=== PATIENT | female | born 1980 | race Caucasian/White ===

== ENCOUNTER 2017-03-05 18:22 | Emergency (ER) | payer BC, MEDICAID ==
[2017-03-05 19:14] LABS: HEMATOCRIT 28.1 % (35.0-45.0); HEMOGLOBIN 8.4 gm/dL (11.7-15.5); MEAN CORPUSCULAR HEMOGLOBIN 16.2 pg (27.0-31.0); PLATELET COUNT 346 Th/cmm (150-400); RED BLOOD COUNT 5.22 Mil/cmm (3.80-5.10); RED CELL DISTRIBUTION WIDTH 18.2 % (11.5-20.0); WHITE BLOOD COUNT 6.4 Th/cmm (4.8-10.8)
[2017-03-05 19:17] LABS: MEAN CELL VOLUME 53.8 fl (81-100)
--- NOTE | 2017-03-05 19:17 | ED Physician Chart ---
Chief Complaint/HPI - Patient Information Date Seen:: 03/05/17 Time Seen:: 18:45 Chief Complaint:: cough History of Present Illness:: THIS IS A 36 YO FEMALE WITH THE SUDDEN ONSET OF A COUGH TWO DAYS AGO WITH CHEST CONGESTION. SHE DENIES FEVER,SPUTUM PRODUCTION OR EXPOSURE TO SOMEONE AT THAT IS SICK. SHE STATES THAT SHE HAD ASTHMA A CHILD BUT NO PROBLEMS RECENTLY. SHE HAS A HISTORY DIABETES BUT NO HISTORY OF HYPERTENSION. Vitals:: Vital Signs - 8 hr 03/05/17 18:44 Temp 98.4 F HR 90 RR 81 BP 127/81 O2 Sat % 100 Historian:: Patient Review:: Nurse's Note Reviewed Review of Systems - Review of Systems General/Constitutional: No fever, No chills, No weight loss, No weakness, No diaphoresis, No edema, No loss of appetite Skin: No skin lesions, No rash, No bruising Head: No headache, No light-headedness Eyes: No loss of vision, No pain, No diplopia ENT: No earache, No nasal drainage, No sore throat, No tinnitus Neck: No neck pain, No swelling, No thyromegaly, No stiffness, No mass noted Cardio Vascular: No chest pain, No palpitations, No PND, No orthopnea, No edema Pulmonary: No SOB, No sputum, Wheezing, Other (CHEST CONGESTION) GI: No nausea, No vomiting, No diarrhea, No pain, No melena, No hematochezia, No constipation, No hematemesis G/U: No dysuria, No frequency, No hematuria Musculoskeletal: No bone or joint pain, No back pain, No muscle pain Endocrine: No polyuria, No polydipsia Psychiatric: No prior psych history, No depression, No anxiety, No suicidal ideation Hematopoietic: No bruising, No lymphadenopathy Allergic/Immuno: No urticaria, No angioedema Neurological: No syncope, No focal symptoms, No weakness, No paresthesia, No headache, No seizure, No dizziness, No confusion, No vertigo Past Medical History - Past Medical History Obtainable: No Past Medical History: DM, Asthma/COPD Family History: None Social History: Non Smoker, No Alcohol, No Drug Use Surgical History: Psychiatricy History: None Medication: Reviewed Family Medical History - Family Member Mother History Unknown: Yes Physical Exam - Physical Examination General/Constitutional: Awake, Well-developed, well-nourished, Alert, No distress, GCS 15, Non-toxic appearing, Ambulatory Head: Atraumatic Eyes: Lids, conjuctiva normal, PERRL, EOMI Skin: Nl inspection, No rash, No skin lesions, No ecchymosis, Well hydrated, No lymphadenopathy ENMT: External ears, nose nl, Nasal exam nl, Lips, teeth, gums nl Neck: Nontender, Full ROM w/o pain, No JVD, No nuchal rigidity, No bruit, No mass, No stridor Respiratory: Nl effort/Exclusion Other Respiratory comments:: BILATERAL RHONCHI HEARD Cardio Vascular: RRR, No murmur, gallop, rubs, NL S1 S2 GI: No tenderness/rebounding/guarding, No organomegaly, No hernia, Normal BS's, Nondistended, No mass/bruits, No McBurney tenderness : No CVA tenderness Extremities: No tenderness or effusion, Full ROM, normal strength in all extremities, No edema, Normal digits & nails Neuro/Psych: Alert/oriented, DTR's symmetric, Normal sensory exam, Normal motor strength, Judgement/insight normal, Mood normal, Normal gait, No focal deficits Misc: normal gait, Normal back, No paraspinal tenderness Labs/Radiology/EKG Results - Lab Results Results: Abnormal Lab Results 03/05/17 03/05/17 03/05/17 19:04 19:04 19:04 WBC 6.4 RBC 5.22 H Hgb 8.4 L Hct 28.1 L MCV 53.8 L MCH 16.2 L MCHC Differential 30.0 RDW 18.2 Plt Count 346 MPV 9.0 Sodium 130 L Potassium 4.4 Chloride 101 Carbon Dioxide 24.1 Anion Gap 9.3 BUN 11 Creatinine 0.7 Est GFR ( Amer) > 60.0 Est GFR (Non-Af Amer) > 60.0 BUN/Creatinine Ratio 15.7 Glucose 330 H Calcium 9.6 Total Bilirubin 1.2 H AST 11 L ALT 6 L Alkaline Phosphatase 51 Troponin I < 0.01 L Total Protein 7.7 Albumin 4.6 Globulin 3.1 Albumin/Globulin Ratio 1.5 Urine Source Urine Color Urine Clarity Urine pH Ur Specific [place] Urine Protein Urine Glucose (UA) Urine Ketones Urine Blood Urine Nitrate Urine Bilirubin Urine Urobilinogen Ur Leukocyte Esterase Urine RBC Urine WBC Ur Epithelial Cells Urine Bacteria Urine Test 03/05/17 03/05/17 19:20 19:20 WBC RBC Hgb Hct MCV MCH MCHC Differential RDW Plt Count MPV Sodium Potassium Chloride Carbon Dioxide Anion Gap BUN Creatinine Est GFR ( Amer) Est GFR (Non-Af Amer) BUN/Creatinine Ratio Glucose Calcium Total Bilirubin AST ALT Alkaline Phosphatase Troponin I Total Protein Albumin Globulin Albumin/Globulin Ratio Urine Source CLEAN C Urine Color YELLOW Urine Clarity SLIGHT HAZY Urine pH 6.0 Ur Specific [place] 1.010 Urine Protein NEGATIVE Urine Glucose (UA) >=1000 H Urine Ketones NEGATIVE Urine Blood NEGATIVE Urine Nitrate NEGATIVE Urine Bilirubin NEGATIVE Urine Urobilinogen 1.0 Ur Leukocyte Esterase NEGATIVE Urine RBC 0-2 Urine WBC 6-10 H Ur Epithelial Cells MODERATE Urine Bacteria MANY Urine Test NEGATIVE Assessment - Assessment General Assessment: ACUTE BRONCHITIS ED Septic Shock - . Is Septic Shock (SBP<90, OR Lactate>4 mmol\L) present?: No - <6hrs of presentation: Vital Signs: Vital Signs - 8 hr 03/05/17 18:44 Temp 98.4 F HR 90 RR 81 BP 127/81 O2 Sat % 100 Reassessment (Disposition) - Reassessment Reassessment Condition:: Improved - Diagnosis Diagnosis:: ACUTE BRONCHITIS URINARY TRACT INFECTION ANEMIA - Aftercare/Follow up Instructions Aftercare/Follow-Up Instructions:: Counseled pt regarding lab results/diagnosis & need follow up, Refer to Discharge Instructions, Counseled pt & family regarding lab results/diagnosis & need follow up - Patient Disposition Discharge/Transfer:: Home Condition at Disposition:: Improved ED Discharge Plan - Patient Disposition Admit/Discharge/Transfer: PT DISCHARGED HOME Condition at Disposition: Improved
[2017-03-05 19:28] LABS: ALB/GLOB RATIO 1.5 (1.0-1.8); ALKALINE PHOSPHATASE 51 U/L (34-104); ANION GAP 9.3 (7.0-16.0); BILIRUBIN,TOTAL 1.2 mg/dL (0.3-1.0); BUN - UREA NITROGEN 11 mg/dL (7-25); BUN/CREATININE RATIO 15.7; CALCIUM SERUM 9.6 mg/dL (8.6-10.3); CARBON DIOXIDE 24.1 mEq/L (21.0-31.0); CHLORIDE 101 mEq/L (98-107); CREATININE - SERUM 0.7 mg/dL (0.6-1.2); GLUCOSE 330 mg/dL (70-105); POTASSIUM SERUM 4.4 mEq/L (3.5-5.1); SGOT 11 U/L (13-39); SGPT/ALT 6 U/L (7-52); SODIUM SERUM 130 mEq/L (136-145)
[2017-03-05 19:44] LABS: URINE BILIRUBIN NEGATIVE (NEGATIVE); URINE BLOOD NEGATIVE (NEGATIVE); URINE COLOR YELLOW; URINE GLUCOSE (UA) >=1000 mg/dL (NEGATIVE); URINE KETONE NEGATIVE (NEGATIVE); URINE PROTEIN NEGATIVE (NEGATIVE); URINE RBC 0-2 /hpf (0-5)
[2017-03-05 19:45] LABS: URINE BACTERIA MANY /hpf (NONE SEEN); URINE EPITHELIAL CELLS MODERATE /lpf (FEW)
[2017-03-05 19:56] LABS: BASOPHIL 2 % (0-3); EOSINOPHIL 2 % (0-5); MICROCYTOSIS 3+; NEUTROPHILS 53 % (40-80); TOTAL CELLS COUNTED 100
[2017-03-05] MEDS ORDERED: INSULIN HUMAN REGULAR 100 UNITS/ML UNIT SUBQ ONE (19:56)
[2017-03-05 19:57] LABS: PLATELET ESTIMATE ADEQUATE (NORMAL); POLYCHROMASIA 1+
[2017-03-05] MEDS ORDERED: INSULIN HUMAN REGULAR 100 UNITS/ML UNIT ONE (20:06)
--- NOTE | 2017-03-06 10:47 | Diagnostic Imaging Report ---
Portable chest x-ray History: Cough Allowing for portable technique the heart size is normal. No focal pulmonary parenchymal processes. No hilar or mediastinal abnormalities. Impression: No acute abnormalities.
== END 2017-03-05 20:10 | disposition home or self-care (01) ==
LOC: ER 18:22
DX: J20.9 Acute bronchitis, unspecified (principal); N39.0 Urinary tract infection, site not specified; D64.9 Anemia, unspecified; E11.9 Type 2 diabetes mellitus without complications; J45.909 Unspecified asthma, uncomplicated; J44.9 Chronic obstructive pulmonary disease, unspecified
CPT/HCPCS: 99285; 96372 ×3; 71010; 84484; 36415; 84443; 85007; 85027; 81001; 83036; 81025; 80053; 87040 ×2; J0696; J2930; J1815

== ENCOUNTER 2017-03-26 18:30 | Emergency (ER) | payer MEDICAID ==
--- NOTE | 2017-03-26 19:31 | ED Physician Chart ---
Chief Complaint/HPI - Patient Information Date Seen:: 03/26/17 Time Seen:: 19:06 Chief Complaint:: COUGH History of Present Illness:: THIS IS A 36 YO FEMALE WITH A COUGH DEVELOPING OVER THE LAST FEW WEEKS. SHE STATES THAT SHE WAS HERE AND TREATED ABOUT TWO WEEKS AGO FOR THE SAME SYMPTOMS WHICH RESOLVED. SHE DENIES FEVER, SPUTUM, SOB BUT HAS TWO PILLOW ORTHOPNIA, PND WITH MORE COUGHING AND CHEST CONGESTION AT NIGHT. SHE STATES THAT SHE HAS TROUBLE WHILE EATING WITH HER THROAT DURING THE DAY. SHE DENIES ANY FOOD ALLERGIES. Allergies:: Allergies Allergy/AdvReac Type Severity Reaction Status Date / Time No Known Allergies Allergy Verified 03/05/17 19:20 Vitals:: Vital Signs - 8 hr 03/26/17 18:54 Temp 98.6 F HR 99 RR 19 BP 139/78 O2 Sat % 95 Historian:: Patient, Family Member Review:: Nurse's Note Reviewed Review of Systems - Review of Systems General/Constitutional: No fever, No chills, No weight loss, No weakness, No diaphoresis, No edema, No loss of appetite Skin: No skin lesions, No rash, No bruising Head: No headache, No light-headedness Eyes: No loss of vision, No pain, No diplopia ENT: No earache, No nasal drainage, No sore throat, No tinnitus Neck: No neck pain, No swelling, No thyromegaly, No stiffness, No mass noted Cardio Vascular: No chest pain, No palpitations, No PND, No orthopnea, No edema Pulmonary: No SOB, Cough, No sputum, No wheezing GI: No nausea, No vomiting, No diarrhea, No pain, No melena, No hematochezia, No constipation, No hematemesis G/U: No dysuria, No frequency, No hematuria Musculoskeletal: No bone or joint pain, No back pain, No muscle pain Endocrine: No polyuria, No polydipsia Psychiatric: No prior psych history, No depression, No anxiety, No suicidal ideation Hematopoietic: No bruising, No lymphadenopathy Allergic/Immuno: No urticaria, No angioedema Neurological: No syncope, No focal symptoms, No weakness, No paresthesia, No headache, No seizure, No dizziness, No confusion, No vertigo Past Medical History - Past Medical History Obtainable: Yes Past Medical History: HTN, DM Family History: None Social History: Non Smoker, No Alcohol, No Drug Use Surgical History: None Psychiatricy History: None Medication: Reviewed Family Medical History - Family Member Mother History Unknown: Yes Physical Exam - Physical Examination General/Constitutional: Awake, Well-developed, well-nourished, Alert, No distress, GCS 15, Non-toxic appearing, Ambulatory Head: Atraumatic Eyes: Lids, conjuctiva normal, PERRL, EOMI Skin: Nl inspection, No rash, No skin lesions, No ecchymosis, Well hydrated, No lymphadenopathy ENMT: External ears, nose nl, Nasal exam nl, Lips, teeth, gums nl Neck: Nontender, Full ROM w/o pain, No JVD, No nuchal rigidity, No bruit, No mass, No stridor Respiratory: Nl effort/Exclusion, Clear to Auscultation, No Wheeze/Rhonchi/ Rales (THERE ARE A FEW RHONCHI HEARD BUT NO WHEEZING.) Cardio Vascular: RRR, No murmur, gallop, rubs, NL S1 S2 GI: No tenderness/rebounding/guarding, No organomegaly, No hernia, Normal BS's, Nondistended, No mass/bruits, No McBurney tenderness : No CVA tenderness Extremities: No tenderness or effusion, Full ROM, normal strength in all extremities, No edema, Normal digits & nails Neuro/Psych: Alert/oriented, DTR's symmetric, Normal sensory exam, Normal motor strength, Judgement/insight normal, Mood normal, Normal gait, No focal deficits Misc: normal gait, Normal back, No paraspinal tenderness Assessment - Assessment General Assessment: ALLERGIC BRONCHITIS ED Septic Shock - . Is Septic Shock (SBP<90, OR Lactate>4 mmol\L) present?: No - <6hrs of presentation: Vital Signs: Vital Signs - 8 hr 03/26/17 18:54 Temp 98.6 F HR 99 RR 19 BP 139/78 O2 Sat % 95 Reassessment (Disposition) - Reassessment Reassessment Condition:: Unchanged - Diagnosis Diagnosis:: ALLERGIC BRONCHITIS - Aftercare/Follow up Instructions Aftercare/Follow-Up Instructions:: Counseled pt regarding lab results/diagnosis & need follow up, Refer to Discharge Instructions, Counseled pt & family regarding lab results/diagnosis & need follow up - Patient Disposition Discharge/Transfer:: Home Condition at Disposition:: Unchanged ED Discharge Plan - Patient Disposition Admit/Discharge/Transfer: PT DISCHARGED HOME Condition at Disposition: Unchanged Additional Instructions: THE PATIENT WAS TOLD TO DISCUSS HER COUGHING NIGHTLY AND DIFFICULTY WHILE EATING OF THROAT SWELLING. SHE WILL SPEAK TO HER PMD ABOUT THE HEART FAILURE SYMPTOMS.
== END 2017-03-26 19:35 | disposition home or self-care (01) ==
LOC: ER 18:30
DX: J45.909 Unspecified asthma, uncomplicated (principal); I10 Essential (primary) hypertension; E11.9 Type 2 diabetes mellitus without complications
CPT/HCPCS: Z7502

== ENCOUNTER 2017-06-11 20:00 | Inpatient (IN) | payer MEDICAID ==
[2017-06-11 21:34] LABS: HEMATOCRIT 26.1 % (41.0-60); MEAN CORPUSCULAR HGB CONC 29.6 pg (28.0-36.0); PLATELET COUNT 308 Th/cmm (150-400); RED BLOOD COUNT 4.83 Mil/cmm (3.80-5.10); RED CELL DISTRIBUTION WIDTH 17.8 % (11.5-20.0); WHITE BLOOD COUNT 6.7 Th/cmm (4.8-10.8)
[2017-06-11] MEDS ORDERED: NITROGLYCERIN SPRAY 4.9 GM SL ONE (21:35)
[2017-06-11] MEDS ORDERED: NIFEdipine 30 mg ER Tab PO ONE (21:35)
[2017-06-11 21:42] LABS: HEMOGLOBIN 7.7 gm/dL (12-16)
[2017-06-11] MEDS ORDERED: Pantoprazole 40 mg EC Tab PO STA (21:45)
[2017-06-11 21:53] LABS: ALB/GLOB RATIO 1.5 (1.0-1.8); ALKALINE PHOSPHATASE 45 U/L (34-104); ANION GAP 10.4 (7.0-16.0); BUN - UREA NITROGEN 9 mg/dL (7-25); BUN/CREATININE RATIO 12.9; CALCIUM SERUM 9.2 mg/dL (8.6-10.3); CARBON DIOXIDE 26.8 mEq/L (21.0-31.0); CHLORIDE 99 mEq/L (98-107); CREATININE - SERUM 0.7 mg/dL (0.6-1.2); GLUCOSE 430 mg/dL (70-105); POTASSIUM SERUM 4.2 mEq/L (3.5-5.1); SGOT 9 U/L (13-39); SGPT/ALT 6 U/L (7-52); SODIUM SERUM 132 mEq/L (136-145)
[2017-06-11 21:54] LABS: CHOLESTEROL 149 mg/dL (<200); TRIGLYCERIDES 144 mg/dL (<150)
[2017-06-11] MEDS ORDERED: Pantoprazole 40 mg EC Tab PO ONE (21:56)
[2017-06-11] MEDS ORDERED: INSULIN ASPART, RECOMBINANT 100 UNITS/ML SUBQ ONE (22:00)
[2017-06-11 22:04] LABS: URINE BILIRUBIN NEGATIVE (NEGATIVE); URINE BLOOD LARGE (NEGATIVE); URINE GLUCOSE (UA) >=1000 mg/dL (NEGATIVE); URINE KETONE NEGATIVE (NEGATIVE); URINE PROTEIN NEGATIVE (NEGATIVE); URINE UROBILINOGEN 0.2 E.U./dL (0.2 - 1.0)
[2017-06-11 22:09] LABS: URINE COLOR YELLOW
[2017-06-11 22:10] LABS: URINE BACTERIA OCCASIONAL /hpf (NONE SEEN); URINE EPITHELIAL CELLS FEW /lpf (FEW); URINE RBC 25-50 /hpf (0-5); URINE WBC 0-2 /hpf (0-5)
[2017-06-11] MEDS: INSULIN ASPART SLIDING SCALE 100 UNITS/ML UNIT SUBQ SCH (22:10)
[2017-06-11 22:19] LABS: EOSINOPHIL 2 % (0-5); HYPOCHROMIA 2+; NEUTROPHILS 56 % (40-80); PLATELET ESTIMATE ADEQUATE (NORMAL)
[2017-06-11 22:20] LABS: ANISOCYTOSIS 1+; MICROCYTOSIS 3+
--- NOTE | 2017-06-11 23:31 | ER Physician Documentation ---
DATE OF SERVICE: EMERGENCY ROOM EVALUATION AND TREATMENT Full code. ALLERGIES: No known allergies. Body surface area 1.84 square meters, weight 72.57 kg. She was seen in the Emergency Room by me close to 09:15 p.m. or so and now it is 09:25 and this dictation is being made. The history was taken by me. The was present. The history was taken also by Dali, the nurse who helped me giving some history from the patient. The patient said that the patient is feeling weak. She is tired. She has anemia. She has diabetes mellitus. She denies any hypertension. The patient is taking for her diabetes mellitus, glipizide 10 mg twice a day and Januvia 50 mg once a day and 20 units of insulin long acting at nighttime. She does not remember the type of long-acting insulin at nighttime, whether it is NPH or glargine or what it is, she does not know. She does not have any other significant complaint but she is known to have diabetes mellitus for many years. She is known to have anemia for many years. She has heavy menstrual cycle for 4-5 days over the past 15-16 years. HISTORY OF PRESENT ILLNESS: The patient does not have any burning, frequency, dysuria in the urine. She does not have any significant complaints. She has no history of injury or trauma. The blood sugar will be checked by the nurse to see where the blood sugar is going on. The patient does not have any cardiac problems. No history of any chest pain, myocardial infarction, rheumatic fever, valvular heart disease, pericardial disease. She does not have any other operations or surgeries. PAST MEDICAL HISTORY: Essentially benign and negative except for diabetes and hypertension. 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 FAMILY HISTORY: Positive for diabetes mellitus in the brother. Her parents also had diabetes mellitus. Father at age of 67. He also of diabetes mellitus. Mother is alive, she is 60 years old. She has diabetes mellitus. REVIEW OF SYSTEMS: Eyes, no history of double vision, blurring, blindness. I am not sure whether she has any diabetic retinopathy as she never had any checkup done. She will need diabetic eye examination to be done. She does not have any ulcers, cancers, tumors that she is aware of. She did not have any injuries to any extremities. We will check out if she falls into any of the diabetic ketoacidosis side or hypoglycemia side or any infection at any place in the body. SOCIAL HISTORY: She has 3 children, both from the same . ALLERGIES: None known. Last menstrual period was 06/09/2017. MEDICAL HISTORY: Diabetes mellitus, anemia, weakness, x 1. Her primary MD's name is Dr. Campo. PHYSICAL EXAMINATION: VITAL SIGNS: Reveal temperature to be 97.9, pulse of 74, respirations 18, blood pressure 122/73, 100% oxygen saturation, height of 5 feet 7 inches, weight of 160 pounds. GENERAL: The patient appears to be pale. She appears to be weak. She appears to be adequately built but seems to be poorly nourished. She appears to have lost some muscle mass that one can see. Peripheral pulses are normal. No edema, no cyanosis, no petechia, no ecchymosis. Carotids are normal. Normal uplift. No evidence of any congestive heart failure or cardiac tamponade. No meningeal signs. The patient appears to be awake, alert, oriented, not in any acute cardiorespiratory distress. She does have some nausea for 1 day. She feels very tired. She has a history of anemia. Pain is 2/10. HEENT: Normal. Conjunctivae pink. Sclerae white. CHEST: Reveals trachea to be central. Fairly decent air entry in both lungs. No rales, no rhonchi. No bronchial breathing. No wheezes audible. HEART: Reveals normal heart sounds. Soft 4th heart sound is heard. Third heart sound is absent. Second heart sound is physiologically split. No deformity of the chest wall. No pacemaker, no ICD devices. No deformity of any other part of the body. ABDOMEN: Soft. Liver, spleen not enlarged. No free fluid in the abdominal cavity. CENTRAL NERVOUS SYSTEM: Within normal limits. Moves both extremities. Given insulin 10 units. LABORATORY DATA: ____ mean corpuscular hemoglobin 26.5. Magnesium is 2. Lipid profile, this is random lipid profile that is done showing cholesterol is 253, triglyceride is 174, HDL cholesterol is 60, LDL is 185. Troponin is 0.02. White count is 8.9, hemoglobin 4.34, hematocrit is 11.5 with a platelet count of 226,000. Neutrophils 79.6. We do not have any urine. FINAL IMPRESSION: 1. The patient is not feeling well. Her random blood sugar just checked by the nurse is 378, 10 units of regular insulin has been ordered. I believe the patient might need to be admitted for her symptoms. EKG has been ordered. We will check it out. 2. She has hyperlipidemia. We will give her some Crestor as a medication. 3. Troponin level is within normal limits. OTHER DIAGNOSES: Include; 1. Uncontrolled diabetes mellitus. 2. Anemia and it looks like hypochromic microcytic anemia. 3. History of . 4. History of nausea for 1 day; whether she has any gastritis or not, we will give her some Protonix for the time being until we find out if there is anything else that is wrong and give other orders. Ten units of regular insulin have been ordered. IV fluids will be given to the patient for the time being. JOB# [id number]
--- NOTE | 2017-06-12 00:45 | ER Physician Documentation ---
DATE OF SERVICE: FOLLOWUP STUDY: Her lab reports came out and I think the patient may need admission for blood transfusions and "hence all the lab results that I got it, I better dictated it out and let you know. I had a lot of reports here, but again they are missing." White count of 6.7, hemoglobin to be 7.7, hematocrit 26.1, mean corpuscular hemoglobin is 16, platelet count is 308,000. Sodium is 135. The electrolytes so far are not available, it will be dictated out once we get it, but because her hemoglobin and hematocrit are low, I am dictating it out. Further dictation will be followed up in view of the critical nature of the patient's illness, so has to be dictated out. JOB# [id number]
[2017-06-12 06:03] LABS: % EOSINOPHILS 3.1 % (0.0-5.0); % LYMPHOCYTES 34.6 % (20.0-50.0); % MONOCYTES 6.4 % (2.0-10.0); % NEUTROPHILS 54.9 % (40.0-80.0); HEMATOCRIT 28.6 % (41.0-60); HEMOGLOBIN 8.5 gm/dL (12-16); MEAN CORPUSCULAR HEMOGLOBIN 16.8 pg (27.0-31.0); MEAN CORPUSCULAR HGB CONC 29.8 pg (28.0-36.0); MEAN PLATELET VOLUME 8.6 fl; NEUTROPHILE ABSOLUTE 2.9 Th/cmm (1.8-8.0); PLATELET COUNT 285 Th/cmm (150-400); RED BLOOD COUNT 5.04 Mil/cmm (3.80-5.10); RED CELL DISTRIBUTION WIDTH 20.3 % (11.5-20.0); WHITE BLOOD COUNT 5.5 Th/cmm (4.8-10.8)
[2017-06-12 06:12] LABS: INR 1.07 (0.5-1.4); PROTHROMBIN TIME (TEST) 11.1 SECONDS (9.5-11.5)
[2017-06-12 06:16] LABS: ALB/GLOB RATIO 1.4 (1.0-1.8); ALKALINE PHOSPHATASE 40 U/L (34-104); ANION GAP 8.6 (7.0-16.0); BUN - UREA NITROGEN 10 mg/dL (7-25); BUN/CREATININE RATIO 16.7; CALCIUM SERUM 8.6 mg/dL (8.6-10.3); CARBON DIOXIDE 27.7 mEq/L (21.0-31.0); CHLORIDE 102 mEq/L (98-107); CREATININE - SERUM 0.6 mg/dL (0.6-1.2); GLUCOSE 336 mg/dL (70-105); POTASSIUM SERUM 4.3 mEq/L (3.5-5.1); SGOT 9 U/L (13-39); SGPT/ALT 5 U/L (7-52); SODIUM SERUM 134 mEq/L (136-145)
[2017-06-12] MEDS: INSULIN ASPART SLIDING SCALE 100 UNITS/ML UNIT SUBQ SCH ×2 (06:40→12:23)
[2017-06-12 07:14] LABS: HEMATOCRIT 28.6 % (33.0-45.0); RBC RETICULOCYTE COUNT 5.04 Mil/cmm; RETICULOCYTES % COUNTED 1.2 % (0.5-1.5)
[2017-06-12 07:33] LABS: MEAN CELL VOLUME 56.6 fl (81-100)
--- NOTE | 2017-06-12 07:35 | Diagnostic Imaging Report ---
Portable chest x-ray Time: 2220 hours History: Pain Allowing for portable technique the heart size is normal. No focal pulmonary parenchymal processes. No hilar or mediastinal abnormalities. Impression: No acute abnormalities.
[2017-06-12] MEDS ORDERED: Insulin Detemir 100 units/mL 10mL Vial SUBQ SCH (09:00)
[2017-06-12 09:23] LABS: IRON SATURATION 9 % (15-55); TIBC (LCI) 383 ug/dL (250-450); UIBC 348 ug/dL (131-425)
--- NOTE | 2017-06-12 10:38 | History & Physical ---
ADMIT DATE: CHIEF COMPLAINT: Generalized weakness and dizziness. HISTORY OF PRESENT ILLNESS: This is a 36-year-old female with history of chronic anemia for many years, who was in her usual state of health until yesterday when she woke up in the morning and actually felt dizzy, tired, somewhat nauseated, and appeared pale to family numbers. The patient has been diagnosed with chronic anemia, likely secondary to dysmenorrhagia, but in the past has taken iron pills with improvement of her symptoms. However, she has not taken iron for few months. She also has a history of type 2 diabetes, recently started on Lantus, but her glucometer readings have been somewhat labile. The patient was seen in the ER where pertinent findings include an H and H 03/14 , sodium of 132, and glucose of 430. She was admitted to telemetry overnight and has received 2 units of PRBC with improvement in her symptoms. On further questioning, the patient denies any similar previous episodes although she has had low-grade anemia, but has never received blood transfusion. She is currently in her periods, which started 3 to 4 days ago and they usually lasts for 5 days and at times she has heavy clotting. PAST MEDICAL HISTORY: As noted above. PAST SURGERIES: She reports one . FAMILY HISTORY: Positive for diabetes in both sides of the family. PAST SURGERIES: One . SOCIAL HISTORY: No tobacco, ETOH, or illicit drug usage. Lives at home with family. She has 3 children. ALLERGIES: NKDA. OUTPATIENT MEDICATIONS: Levemir 15 units every day, glipizide 10 mg b.i.d., and Januvia 50 mg every day. REVIEW OF SYSTEMS: CONSTITUTIONAL: As noted above, generalized weakness and tiredness. No syncope reported. CARDIAC: No chest pain or palpitations. PULMONARY: No cough or phlegm production. GASTROINTESTINAL: Denies any melena or bright red blood per rectum. She did feel somewhat nauseous, but denies any emesis. GENITOURINARY: Denies any UTI symptomatology. No hematuria. 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 NEUROLOGIC: No changes in vision. No syncope. PHYSICAL EXAMINATION: VITAL SIGNS: Temperature 98.0, pulse 80, respirations 18, BP 123/72, and satting 99% on room air. GENERAL: Well nourished, well developed, and not in acute distress. Hair color is within normal limits. HEAD AND NECK: Normocephalic and atraumatic. Pupils equal and reactive to light. Extraocular movements are intact. Oropharynx is moist and clear. CARDIOVASCULAR: Regular rate and rhythm without any murmurs. LUNGS: Clear to auscultation bilaterally. ABDOMEN: Soft, supple, nontender, and nondistended. Normoactive bowel sounds. EXTREMITIES: There is no edema in lower extremities. NEUROLOGIC: Grossly intact and nonfocal. Cranial nerves II through XII within normal limits. LABORATORY DATA: On admission H and H 7.7/26.1 and white count 6.7 with a platelet count of 308. Sodium 132 with glucose of 430. A1c 12.5. Iron 35. Magnesium 1.9 and calcium 9.2. Lactic acid level is within normal limits. AST 9 and ALT 6. Troponins are negative x 1 set. UA shows large glucose, large blood, 20 to 50 rbc's, and negative for bacteria or nitrites. DIAGNOSTICS: Chest x-ray done on admission shows no acute abnormalities. ASSESSMENT: 1. Symptomatic anemia. 2. History of chronic anemia, likely secondary to heavy menses. 3. Diabetes out of control. 4. Hyponatremia. PLAN: The patient has been admitted to the telemetry dillard, but now will be transferred to Med/Surg. She has received 2 units of PRBC with improvement of her H and H and symptomatically, she reports also improvement of her weakness and dizziness. The patient will undergo a pelvic ultrasound to rule out fibromas and she will be kept on her medications as scheduled. I discussed with her the probability of this being secondary to heavy menses and instructed the patient that upon discharge, she will seek the help of her primary care doctor for referral to a technical cable jointer for further management. I also discussed current findings of her diabetes out of control and also instructed her to follow up with her primary care doctor upon discharge for adjustment of her medications. At this time, the patient has voiced improvement of her symptoms as noted above and will be discharged pending her pelvic ultrasound, which has not been done yet. JOB# [id number] ROSALINDA
--- NOTE | 2017-06-12 12:50 | Diagnostic Imaging Report ---
Exam: Ultrasound examination of pelvis dated HISTORY: Pelvic mass. Findings: Real-time ultrasound examination of pelvis performed utilizing transvaginal technique. The study demonstrates uterus measuring 9.8 x 5.7 x 7 cm diameter with endometrial thickness 3 mm. There is evidence for a fundal fibroid mass measuring 2.1 x 1.8 x 1.6 cm. Right ovary measures 3 x 2.3 x 2 cm diameter contains small follicular cysts largest one measuring 1.1 mm diameter. Left ovary is not seen. Small amount of free fluid is noted in cul-de-sac. IMPRESSION: 1. Nonvisualization left ovary. 2. Small fibroid nodule in the fundus measuring 2.1 cm diameter 3. Small right ovarian follicular cysts largest one measuring 1.1 cm diameter.
== END 2017-06-12 14:05 | disposition home or self-care (01) | DRG 532 ==
LOC: ER 20:00 → TELE 23:10 → MSI 06-12 09:08
PROVIDERS: ADMIT Internal Medicine; ATTEND Internal Medicine
PROC: 30233N1 Transfusion of Nonautologous Red Blood Cells into Peripheral Vein, Percutaneous Approach (ICD-10-PCS; principal; 2017-06-12)
DX: N94.6 Dysmenorrhea, unspecified (principal); E87.1 Hypo-osmolality and hyponatremia; I10 Essential (primary) hypertension; E78.5 Hyperlipidemia, unspecified; D64.9 Anemia, unspecified; E11.9 Type 2 diabetes mellitus without complications; Z83.3 Family history of diabetes mellitus; Z79.4 Long term (current) use of insulin
CPT/HCPCS: 36415-UA; 71010-TC; 76856-TC; 80053-TC; 80061-TC; 81001-TC; 81025-TC; 82378-90; 82728-90; 82948-90; 83036-90; 83540-90; 83550-90; 83605; 83735-TC; 84484-TC; 85007-TC; 85025-TC; 85027-TC; 85044-TC; 85610-TC; 86850-TC; 86900-TC; 86901-TC; 86922-TC; 87086-90; 93005; J1815; P9016; Z7610